=== PATIENT | female | born 1980 | race Caucasian/White ===

== ENCOUNTER 2023-07-26 08:08 | Day surgery (SDC) | payer OTHER ==
[2023-07-19 15:35] VITALS: BP 109/74
[~2023-07-26] VITALS: Ht 160 cm; Wt 77.0 kg
--- NOTE | ~2023-07-26 | OR ---
[facility] [address], [place] [address] Draft DATE OF OPERATION: 07/26/2023 SURGEON: Shaq Smith DO PREOPERATIVE DIAGNOSES: 1. Adenomyosis. 2. Dysmenorrhea. PROCEDURES PERFORMED: 1. Total laparoscopic hysterectomy. 2. Bilateral salpingectomy. 3. Cystoscopy. RAD TECHNOLOGIST: Lily Kurtz MD ANESTHESIA: General. ESTIMATED BLOOD LOSS: 10 mL. COMPLICATIONS: None. DRAINS: Suarez to gravity. SPECIMEN: Uterus, bilateral tubes, and cervix. INDICATIONS: Ms. Boateng is a very pleasant 43-year-old female with a history of adenomyosis, dysmenorrhea, who has failed conservative therapy and requests definitive management with TLH, BS and cysto. Risks, benefits, and alternatives were discussed in detail with the patient. The patient understands and wished to proceed with the procedure. TECHNIQUE: The patient was taken to the OR. A time-out was performed to confirm correct patient, correct procedure. General anesthesia was adequately established. The patient was PATIENT NAME: TOÑO BOATENG OPERATIVE REPORT DATE OF : 82 REPORT #: [id number] PHYSICIAN: SHAQ SMITH DO (JD) PCP: DEISY ZAYAS MD REPORT IS CONFIDENTIAL AND NOT TO BE RELEASED WITHOUT AUTHORIZATION [facility] [address] [place] [id number] Draft prepped and draped in dorsal lithotomy position with her feet in Yellofin stirrups. ICPs were on and running. The patient received Ancef 2 g preoperatively and no heparin was indicated. A Suarez catheter was inserted. A weighted speculum was placed in the vagina and the anterior lip of the cervix was grasped with an Allis clamp. The cervix was gently dilated using Hegar dilators and a Clouliare uterine manipulator was placed without difficulty. Surgeon's gloves were changed and attention was turned to the abdomen. Just inferior to the umbilicus, the skin was infiltrated with 0.25% Marcaine with epinephrine and a 3 cm curvilinear incision was made using a surgical scalpel. The fascia was grasped with hemostats, elevated, and entered sharply. Fascial incision was extended bilaterally using Gracia scissors and stay sutures of 0 Vicryl placed superior and inferiorly. The peritoneum was entered bluntly and no adhesions were palpated. Speedy operative port was then placed without difficulty with low opening pressures noted. A 5 mm assist port was placed in the left lower quadrant under direct visualization without complication. An 8 mm expanding port was placed in the right lower quadrant under direct visualization without complication. Survey of the abdomen and pelvis was performed demonstrating normal liver. She did have some adhesions of the omentum, but these were mild. The pelvis appears normal with normal uterus, tubes, and ovaries, although the tubes were noted to have significantly fatty appearance. The left fallopian tube was grasped, elevated and divided along the mesosalpinx using LigaSure device. The left uteroovarian ligament was fulgurated and divided with excellent hemostasis. The left round ligament was fulgurated, divided and the leaves of the broad ligament were dissected from the midportion of the round to the cervical cup and carried anteriorly and posteriorly from the midportion of the round ligament to the uterosacral ligament across the posterior edge of the vaginal cup. The uterine vessels were identified fulgurated and divided with excellent hemostasis appreciated. The process was repeated on the right with division, amputation of the right fallopian tube, division of the right utero-ovarian ligament, round ligament and leaves of the broad ligament. The right uterine vessels were identified, fulgurated and divided with excellent hemostasis. Colpotomy was then performed circumferentially using Sonicision device and the uterus and cervix were delivered through the vagina without difficulty and sent to Pathology for further evaluation. Pneumoperitoneum was reestablished by placing a wet lap sponge inside of a surgical glove and placing with inside the vagina. Pneumoperitoneum was reestablished and the colpotomy was carefully examined and made hemostatic with the LigaSure device. Once hemostasis was appreciated, the colpotomy was repaired using V-Loc suture with an Endostitch device with careful attention to incorporate the uterosacral ligaments bilaterally and incorporate the vaginal epithelium with each bite. Excellent hemostasis and apical support was appreciated. The pelvis was irrigated and again found to be hemostatic. Pneumoperitoneum was reduced and trocars were removed. Infraumbilical fascia was reapproximated using 0 Vicryl in a running nonlocked manner and the repair was reinforced using the stay sutures. Skin was reapproximated using 4-0 Vicryl repeat with excellent hemostasis and cosmesis. Attention was then turned to cystoscopy. The Suarez was removed and a 70-degree PATIENT NAME: TOÑO BOATENG OPERATIVE REPORT DATE OF : 82 REPORT #: [id number] PHYSICIAN: SHAQ SMITH) PCP: DEISY ZAYAS MD REPORT IS CONFIDENTIAL AND NOT TO BE RELEASED WITHOUT AUTHORIZATION [address] [address] Draft cystoscope was placed in the urethral meatus and advanced under direct visualization to the bladder. Normal bladder dome. Bilateral ureteral jets were appreciated. The bladder was drained. Suarez catheter was reinserted. The patient was taken to PACU in good and stable condition. Sponge, needle, and instrument counts were correct x2 at the end the procedure. Dr. Kurtz was present and participated in all portions of the procedure. Shaq Smith DO JANSON/MODL /[id number] Copies: ~ PATIENT NAME: TOÑO BOATENGN OPERATIVE REPORT DATE OF : [birth year] REPORT #: [id number] PHYSICIAN: SHAQ SMITH DO (JD) PCP: DEISY ZAYAS MD REPORT IS CONFIDENTIAL AND NOT TO BE RELEASED WITHOUT AUTHORIZATION
[~2023-07-26 08:08] MED LIST: ANIMAL SHAPES1 EAC4 PO; CEFAZOLIN SODIUM 2 GM/20 ML SYR IV SCH; IBLOOD GLUCOSE TEST STRIP 1 EA TEST VI PRN; LACTATED RINGER'S 1,000 ML IV SCH; LEXAPRO20 MG PO; LIDOCAINE HCL 1% 5 ML SDV INJ ONE; MAGNESIUM200 MG PO; TRAZODONE HCL50 MG PO; VITAMIN D5000 UNIT PO; WELLBUTRIN SR100 MG PO
[2023-07-26 08:28] VITALS: BP 108/82
[2023-07-26] MEDS ORDERED: ondansetron HCL 4 MG/2 ML VIAL ONE (09:18)
[2023-07-26] MEDS ORDERED: ROCURONIUM BROMIDE 50 MG/5 ML SYR ONE (09:18)
[2023-07-26] MEDS ORDERED: MIDAZOLAM HCL 2 MG/2 ML VIAL ONE (09:18)
[2023-07-26] MEDS ORDERED: DEXAMETHASONE SOD PHOS 4 MG/ML VIAL ONE (09:18)
[2023-07-26] MEDS ORDERED: dexmedeTOMIDine HCl 200 MCG/2 ML VIAL ONE (09:18)
[2023-07-26] MEDS ORDERED: SUGAMMADEX SODIUM 200 MG/2 ML ML ONE (09:18)
[2023-07-26] MEDS ORDERED: ACETAMINOPHEN 1,000 MG/100 ML VIAL ONE (09:18)
[2023-07-26] MEDS ORDERED: LIDOCAINE HCL 2% 20 MG/ML VIAL INJ ONE (09:18)
[2023-07-26] MEDS ORDERED: KETAMINE in NS 50 MG/5 ML SYR ONE (09:18)
[2023-07-26] MEDS ORDERED: propofoL 200 MG/20 ML VIAL ONE (09:18)
[2023-07-26] MEDS ORDERED: SCOPOLAMINE 1 MG/3 DAYS PATCH 1 EACH TDSY ONE (09:18)
[2023-07-26] MEDS ORDERED: fentaNYL citrate 100 MCG/2 ML VIAL ONE ×2 (09:18→10:44)
[2023-07-26] MEDS ORDERED: LIDOCAINE HCL 2% 5 ML SDV ONE (09:18)
[2023-07-26] MEDS ORDERED: KETOROLAC TROMETHAMINE 30 MG/ML VIAL ONE (09:18)
[2023-07-26] MEDS ORDERED: NALOXONE HCL 0.4 MG SYR IV PRN ×2 (10:00→11:15)
[2023-07-26] MEDS ORDERED: PROCHLORPERAZINE EDISYLATE 10 MG/2 ML VIAL IV PRN (10:00)
[2023-07-26] MEDS ORDERED: fentaNYL citrate 50 MCG/ML SDV IV PRN (10:00)
[2023-07-26] MEDS ORDERED: droPERidol 5 MG/2 ML VIAL IV PRN (10:00)
[2023-07-26] MEDS ORDERED: ondansetron HCL 4 MG/2 ML VIAL IV PRN ×2 (10:00→11:15)
[2023-07-26] MEDS ORDERED: IBLOOD GLUCOSE TEST STRIP 1 EA TEST VI PRN (10:00)
[2023-07-26] MEDS ORDERED: HYDROmorphone HCL 1 MG/ML SYR IV PRN (10:00)
[2023-07-26] MEDS ORDERED: LACTATED RINGER'S 1,000 ML IV ONE (10:38)
[2023-07-26] MEDS ORDERED: FLUORESCEIN SODIUM 500 MG/5 ML ML ONE (10:51)
[2023-07-26] MEDS ORDERED: METOCLOPRAMIDE HCL 10 MG/2 ML SDV IV PRN (11:15)
[2023-07-26] MEDS ORDERED: OXYCODONE/APAP 5/325 TAB PO PRN (11:15)
[2023-07-26] MEDS ORDERED: FAMOTIDINE 20 MG TAB PO PRN (11:15)
[2023-07-26] MEDS ORDERED: MAGNESIUM HYDROXIDE/AL HYDROX 30 ML CUP PO PRN (11:15)
[2023-07-26] MEDS ORDERED: MORPHINE SULFATE 10 MG/ML VIAL IV PRN (11:15)
[2023-07-26] MEDS ORDERED: SIMETHICONE 125 MG TABLET CHEWABLE PO PRN (11:15)
--- NOTE | 2023-07-26 11:49 | NUR ---
07/26/23 1149 Suzanna Jim 1116 PT ARRIVED IN PACU NON RESPONSIVE TO NOXIOUS STIMULI WITH OPA IN PLACE. 1121 PT REACTIVE. OPA REMOVED. 1130 C/O FEELING COLD. WARM BLANKETS GIVEN. 1145 C/O ABD CRAMPS 08/16. FENTANYL 50MCG GIVEN IV.
[2023-07-26 12:30] VITALS: BP 119/79
--- NOTE | 2023-07-26 12:49 | NUR ---
1230: PATIENT BACK IN DAY SURGERY ROOM FROM PACU. RATES PAIN 2/10. ABDOMINAL SITES X 3 WITH BANDAIDS AND STERI STRIPS WITH MINIMAL DRAINAGE. NO DRAINAGE ON PERIPAD. VS CHECKED. IV SITE WNL. CALL LIGHT WITHIN REACH. FAMILY AT BEDSIDE.
[2023-07-26] MEDS ORDERED: SIMETHICONE 125 MG TABLET CHEWABLE PO SCH (13:00)
--- NOTE | 2023-07-26 13:25 | NUR ---
LE 1313 PATIENT GIVEN PRN PERCOCET FOR 5/10 PAIN. DAUGHTER AT BEDSIDE. CALL LIGHT WITHIN REACH NO FUTHER NEEDS. NO QUESTIONS AT THIS TIME.
[2023-07-26 13:26] VITALS: BP 106/81
--- NOTE | 2023-07-26 13:50 | NUR ---
LE 1325-PT LAYING IN BED WITH EYES CLOSED. AWAKES EASILY AND ANSWERES QUESTIONS. RESP EVEN AND UNLABORED. RATES PAIN 5/10. STATES SOME NAUSEA BUT TOLERABLE. PROVIDED CRACKERS. PT HAS WATER AT BEDSIDE. NO OTHER NEEDS AT THIS TIME. CALL LIGHT WITHIN REACH.
[2023-07-26] MEDS ORDERED: IBUPROFEN 800 MG TAB PO SCH (14:00)
[2023-07-26 14:17] VITALS: BP 129/89
--- NOTE | 2023-07-26 14:47 | NUR ---
LE 1400 PATIENT ABLE TO AMBULATE TO THE RESTROOM. VOIDED 100 MLS OF CLEAR AND YELLOW URINE. PATIENT BACK TO THE ROOM. PATIENT STATES THE PAIN HAS IMPROVED. LE 1417 PATIENT HAS MET DISCHARGE CRITERIA. NO QUESTIONS AT THIS TIME. PATIENT IV D/C'D WNL. PATIENT HAS NO QUESITIONS. PATIENT WHEELED OUT OF THE FACILITY.
--- NOTE | 2023-08-01 17:13 | PATH ---
[facility] [address], [place] [address] Signed SPECIMEN(S): A CERVIX, UTERUS, AND TUBES SPECIMEN SOURCE: A. CERVIX, UTERUS, AND TUBES CLINICAL HISTORY: Adenomyosis; dysmenorrhea; amenorrhea FINAL PATHOLOGIC DIAGNOSIS: Uterus cervix and bilateral fallopian tubes: - Uterus and cervix - Cervix: Mild chronic cervicitis. No dysplasia identified. - Endometrium: Weakly proliferative endometrium. No hyperplasia identified. - Myometrium: Benign submucosal leiomyoma. - Serosa: Unremarkable, no atypia identified. - Bilateral fallopian tubes: - Benign fallopian tube tissue, completely transected. - No atypia or malignancy identified. [facility] MICROSCOPIC EXAMINATION: Histologic sections of all submitted blocks are examined by light microscopy. These findings, together with the gross examination, support the pathologic diagnosis. GROSS DESCRIPTION: The specimen, labeled and designated "Boateng, cervix, uterus and bilateral fallopian tubes," is received in formalin and consists of uterus and cervix with undesignated and bilateral fallopian tubes. The uterus measures 3.7 cm from cornu to cornu, 3.4 cm anterior to posterior and 6.1 cm from cervix to fundus. The serosal surface is violaceous, smooth. The uterus weight 75 g. The ectocervix is pink-valencia, smooth with congested area around cervical canal opening. The ectocervix measures 4.0 x 3.7 cm. Sectioning through the cervix reveals dark red, congested homogenous tissue. The endometrial cavity is triangular shaped and measures 1.8 x 2.5 cm. It is lined with pink-valencia red, smooth endometrium. Sectioning through myometrium reveals one white, firm, well-defined sub endometrial nodule that measures 1.0 cm in greatest dimension. Sectioning through the nodule reveals a white, firm, whorled surface. The reminder of the PATIENT NAME: TOÑO BOATENG PATHOLOGY DATE OF : 82 REPORT #: [id number] PHYSICIAN: DONNY PATHOLOGY PCP: DEISY ZAYAS MD REPORT IS CONFIDENTIAL AND NOT TO BE RELEASED WITHOUT AUTHORIZATION [facility] [address] [place], [place] [address] Signed myometrium is trabeculated and focally congested. The myometrium measures 1.7 cm in thickness. The endometrium measures up to 0.1 cm in thickness. Both fallopian tubes show fimbria and violaceous and smooth serosa. The paratubal tissue is yellow-valencia, fibroadipose. The first fallopian tube measures 6 cm in length and 0.6 cm in diameter. The second fallopian tube measures 7.5 x 0.6 cm. Sectioning through both fallopian tubes is grossly unremarkable. Cassette Summary: (A1) cervix, quality control representative sections, posterior inked (A2) endomyometrium with myometrium focally congested area, quality control representative sections (A3) sub endometrial nodule, quality control representative sections (A4) first fallopian tube, quality control representative sections (A5) second fallopian tube, quality control representative sections JS (under the direct supervision of a pathologist) The Gross Description was prepared using a voice recognition system. The report was reviewed for accuracy; however, sound-alike word errors, addition and/or deletions may occur. If there is any question about this report, please contact Client Services. ADDITIONAL NOTES: Immunohistochemical and/or in situ hybridization studies if performed in this case included appropriate positive controls that reacted as expected. This test was developed and its performance characteristics determined by [facility]. It has not been cleared or approved by the U.S. Food and Drug Administration. The FDA has determined that such clearance or approval is not necessary. This test is used for clinical purposes. It should not be regarded as investigational or for research. [facility] is certified under the Clinical Laboratory Improvement Amendments of 1988 (CLIA) as qualified to perform high complexity clinical laboratory testing. PERFORMING LABORATORY: Technical component was performed by [facility], [address] [place] [id number] (CLIA# [id number]). Professional interpretation was performed by [facility], [address] [place] [id number] (CLIA#: [id number]). PATIENT NAME: TOÑO BOATENG PATHOLOGY DATE OF : 82 REPORT #: [id number] PHYSICIAN: DONNY MONTOYA PCP: DEISY ZAYAS MD REPORT IS CONFIDENTIAL AND NOT TO BE RELEASED WITHOUT AUTHORIZATION [address] [address] Signed Diagnostician: Marko Cartagena MD Pathologist Electronically Signed 08/01/2023 Copies: ~ PATIENT NAME: TOÑO BOATENG PATHOLOGY DATE OF : 82 REPORT #: [id number] PHYSICIAN: DONNY PATHOLOGY PCP: DEISY ZAYAS MD REPORT IS CONFIDENTIAL AND NOT TO BE RELEASED WITHOUT AUTHORIZATION
== END 2023-07-26 14:17 | disposition home or self-care (01) ==
LOC: OPS 08:08 → DS 08:08 → OPS 09:00 → DS 11:00 → OPS 11:00 → DS 11:30 → OPS 14:17
PROVIDERS: ATTEND Obstetrics & Gynecology
PROC: 0UT94ZZ Resection of Uterus, Percutaneous Endoscopic Approach (ICD-10-PCS; principal; 2023-07-26 09:00)
PROC: 0UB74ZZ Excision of Bilateral Fallopian Tubes, Percutaneous Endoscopic Approach (ICD-10-PCS; 2023-07-26 09:00)
DX: N72 Inflammatory disease of cervix uteri (principal); D25.0 Submucous leiomyoma of uterus; N80.03 Adenomyosis of the uterus; Z87.891 Personal history of nicotine dependence; F32.9 Major depressive disorder, single episode, unspecified
CPT/HCPCS: 00840; J0131; J0690; J1100; J1885; J2001; J2250; J2405; J2704; J3010; J3490; J7121